=== PATIENT | female | born 2000 | race Two or more races ===

== ENCOUNTER 2018-12-27 19:56 | Observation (INO) | payer MEDICAID | END 2018-12-27 20:45 | disposition home or self-care (01) | DRG 566 | LOC: LDRP 19:56 | PROVIDERS: ADMIT Specialist; ATTEND Specialist | DX: O26.893 Other specified pregnancy related conditions, third trimester (principal); R10.2 Pelvic and perineal pain; Z3A.28 28 weeks gestation of pregnancy | CPT/HCPCS: 59025; 81002; G0378 ==

== ENCOUNTER 2019-01-08 08:20 | Observation (INO) | payer MEDICAID | END 2019-01-08 11:50 | disposition home or self-care (01) | DRG 566 | LOC: LDRP 08:20 | PROVIDERS: ADMIT Specialist; ATTEND Specialist | DX: O36.8130 Decreased fetal movements, third trimester, not applicable or unspecified (principal); O26.893 Other specified pregnancy related conditions, third trimester; R10.9 Unspecified abdominal pain; R50.9 Fever, unspecified; Z3A.30 30 weeks gestation of pregnancy | CPT/HCPCS: 59025; 76818; 81002; G0378 ==

== ENCOUNTER 2019-02-03 16:08 | Observation (INO) | payer MEDICAID ==
[2019-02-03] MEDS ORDERED: PREN-96 PO (16:19)
== END 2019-02-03 16:50 | disposition home or self-care (01) | DRG 566 ==
LOC: LDRP 16:08
PROVIDERS: ADMIT Obstetrics & Gynecology; ATTEND Obstetrics & Gynecology
DX: O00.01 Abdominal pregnancy with intrauterine pregnancy (principal); O42.913 Preterm premature rupture of membranes, unspecified as to length of time between rupture and onset of labor, third trimester; Z3A.33 33 weeks gestation of pregnancy
CPT/HCPCS: 59025; 81002; G0378

== ENCOUNTER 2019-03-12 05:40 | Observation (INO) | payer MEDICAID ==
[~2019-03-12] VITALS: Ht 154.9 cm; Wt 84.8 kg
[~2019-03-12 05:40] MED LIST: PREN-96 PO
[2019-03-12] MEDS ORDERED: LACTATED RINGER'S 1,000 ML IV ONE (06:15)
== END 2019-03-12 08:05 | disposition home or self-care (01) | DRG 566 ==
LOC: LDRP 05:40
PROVIDERS: ADMIT Specialist; ATTEND Specialist
DX: O62.9 Abnormality of forces of labor, unspecified (principal); Z3A.39 39 weeks gestation of pregnancy
CPT/HCPCS: 59025; 81002; G0378; 96361; 96374

== ENCOUNTER 2019-03-19 08:06 | Inpatient (IN) | payer MEDICAID ==
[~2019-03-19] VITALS: Ht 154.9 cm; Wt 86.2 kg
[2019-03-19] MEDS: LACTATED RINGER'S 1,000 ML IV SCH ×2 (08:40→20:10)
[2019-03-19] MEDS ORDERED: PHISODERM TOP SOLN 240ML BTL TOP PRN (09:00)
[2019-03-19] MEDS ORDERED: NALBUPHINE HCL 10 MG/1ml INJECTION IV PRN (09:00)
[2019-03-19] MEDS ORDERED: LIDOCAINE 2%HCL (LOCAL ANESTH.) INJ 20ML MDV ID ONE (09:00)
[2019-03-19] MEDS ORDERED: PENICILLIN G POT 5MIL/D5 50ML 50 ML IV ONE (09:00)
[2019-03-19] MEDS ORDERED: WITCH HAZEL-GLYCERIN PAD TOP PRN (09:00)
[2019-03-19] MEDS ORDERED: DERMOPLAST 60ML BOTTLE TOP PRN (09:00)
[2019-03-19 09:30] LABS: Basophils # (auto) 0 uL; Basophils % (auto) 0.4 % (0.0-2.0); Eosinophils # (auto) 0.1 uL; Eosinophils % (auto) 0.4 % (0.0-7.0); Hematocrit 39.6 % (36.0-46.0); Hemoglobin 13.1 g/dL (12.2-16.2); Lymphocytes # (auto) 1.2 uL; Lymphocytes % (auto) 9.9 % (10.0-50.0); Mean Corpuscular Hgb Conc. 33.2 g/dL (32.0-36.0); Mean Corpuscular Volume 93.4 fL (80.0-100.0); Monocytes # (auto) 0.6 uL; Neutrophils # (auto) 10.3 uL; Neutrophils % (auto) 84.3 % (37.0-80.0); Platelet Count (auto) 273 10^3/uL (140-450); Red Blood Cells 4.24 10^6/uL (4.0-5.20); Red Cell Distribution Width 14.1 % (11.8-14.3); White Blood Cell 12.3 10^3/uL (4.4-10.8)
[2019-03-19] MEDS: PENICILLIN G POTASSIUM 2,500,000 UNITS in D5W 5% 50 ML IV SCH ×4 (09:30→21:21)
[2019-03-19 09:38] LABS: Urine Amorphous Crystal FEW /hpf (None Seen); Urine Bacteria FEW /hpf (None Seen); Urine Blood Negative /uL (Negative); Urine Specific Gravity 1.011 (1.001-1.035); Urine WBC 2 /hpf (0 - 5)
[2019-03-19 09:40] LABS: Albumin 2.8 g/dL (3.4-5.0); BUN/Creatinine Ratio 19.3; Potassium 3.9 mmol/L (3.5-5.1)
[2019-03-19 09:42] LABS: INR 0.85 (0.9-1.15); Partial Thromboplastin Time 26.3 sec (23.64-32.05); Prothrombin Time 9.2 sec (9.06-12.60)
[2019-03-19 09:43] LABS: Bilirubin, Total 0.2 mg/dL (0.2-1.0); Total Protein 7.5 g/dL (6.4-8.2)
[2019-03-19] MEDS ORDERED: BUTORPHANOL TARTRATE 2 MG/1 ML VIAL ONE (21:31)
[2019-03-19] MEDS ORDERED: LACT. RINGERS/OXYTOCIN 20UNITS 1,000 ML IV SCH (21:42)
[2019-03-19] MEDS ORDERED: BUTORPHANOL TARTRATE 2 MG/1 ML VIAL IV ONE (21:45)
[2019-03-19] MEDS ORDERED: LACTATED RINGER'S 1,000 ML IV ONE (22:14)
[2019-03-19] MEDS ORDERED: fentaNYL CITRATE 100 MCG/2 ML VL IV ONE ×2 (22:15→23:30)
[2019-03-19] MEDS ORDERED: fentaNYL W ROPIVACAINE 150 ML EPI SCH ×2 (22:15→23:30)
[2019-03-19] MEDS ORDERED: ePHEDrine SULFATE 50 MG/ML AMP IV ONE ×2 (22:15→23:30)
[2019-03-19] MEDS ORDERED: NALOXONE HCL 0.4 MG/ML VIAL IV ONE ×2 (22:15→23:30)
[2019-03-19] MEDS ORDERED: LIDOCAINE HCL 2 %PF INJ 10ML AMP IJ ONE (22:15)
[2019-03-19] MEDS ORDERED: SODIUM CHLORIDE 0.9% 500 ML IV PRN (23:17)
[2019-03-19] MEDS ORDERED: LACTATED RINGER'S 500 ML IV ONE (23:17)
[2019-03-20] MEDS: PENICILLIN G POTASSIUM 2,500,000 UNITS in D5W 5% 50 ML IV SCH ×2 (00:59→05:00)
[2019-03-20] MEDS ORDERED: LACTATED RINGER'S 1,000 ML IV SCH (03:45)
[2019-03-20] MEDS ORDERED: LACT. RINGERS/OXYTOCIN 20UNITS 1,000 ML IV SCH (04:39)
--- NOTE | 2019-03-20 05:50 | NUR ---
Ambulation: Patient OOB with standby assistance by RN. Patient ambulated to bathroom with steady gait. Patient able to void without difficulty. [facility]icare teaching provided with returned demonstration by patient. Clean gown provided and bed linen changed. Patient ambulated back to bed with steady gait and no distress noted.
[2019-03-20 07:00] VITALS: BP 103/59
[2019-03-20 10:30] VITALS: BP 111/64
[2019-03-20 12:42] LABS: RPR Non Reactive (Non Reactive)
[2019-03-20 15:00] VITALS: BP 108/59
--- NOTE | 2019-03-20 15:30 | NUR ---
iv line removed and discontinued.2x2 pressure dressing applied.no bleeding noted.
[2019-03-20 19:00] VITALS: BP 118/71
[2019-03-20] MEDS: IBUPROFEN 600 MG TAB PO PRN (19:27)
[2019-03-20 23:15] VITALS: BP 100/56
[2019-03-21] MEDS ORDERED: TETANUS-DIPTH-ACEL PERTUSSIS 0.5ML SYRG IM ONE (01:30)
[2019-03-21] MEDS: IBUPROFEN 600 MG TAB PO PRN (01:45)
[2019-03-21 03:00] VITALS: BP 111/65
[2019-03-21 06:42] VITALS: BP 114/71
--- NOTE | 2019-03-21 10:33 | NUR ---
Discharge: Patient taken to vehicle via steady ambulation with all personal belongings, accompanied by FOB and WORK COUNSELORSHIVANI MCCLENDON. No distress noted at time of departure, no adverse changes in status since initial assessment.
--- NOTE | 2019-03-21 10:38 | NUR ---
Discharge: Discharge instructions given as ordered. Pt encouraged to follow up with [facility] on April 05 at 0900 am. All questions and concerns addressed. Patient verbalized understanding. Medication reconciliation completed and copy given to patient. All copies of vaccinations given to patient. Patient encouraged to prepare to depart unit. Addendum: 03/21/19 at 1039 by CHRISTIAN MARTINEZ RN RN DISCHARGE INSTRUCTIONS GIVEN AT 0915AM.
== END 2019-03-21 10:33 | disposition home or self-care (01) | DRG 560 ==
LOC: LDRP 08:06
PROVIDERS: ADMIT Specialist; ATTEND Specialist
PROC: 10E0XZZ Delivery of Products of Conception, External Approach (ICD-10-PCS; principal; 2019-03-20)
PROC: 3E0R3BZ Introduction of Anesthetic Agent into Spinal Canal, Percutaneous Approach (ICD-10-PCS; 2019-03-20)
PROC: 00HU33Z Insertion of Infusion Device into Spinal Canal, Percutaneous Approach (ICD-10-PCS; 2019-03-20)
DX: O48.0 Post-term pregnancy (principal); Z37.0 Single live birth; Z3A.40 40 weeks gestation of pregnancy; Z82.49 Family history of ischemic heart disease and other diseases of the circulatory system; Z80.3 Family history of malignant neoplasm of breast; Z83.3 Family history of diabetes mellitus
CPT/HCPCS: 36415; 51702; 59025; 59409; 62282; 80053; 81001; 85025; 85610; 85730; 86592; 86850; 86900; 86901; 90715; 94762; 96361; 96366; 96372; G0378; J2540; J2590; J3010; J7060

== ENCOUNTER 2019-07-29 00:22 | Emergency (ER) | payer MEDICAID ==
[~2019-07-29] VITALS: Ht 154.9 cm; Wt 78.0 kg
[2019-07-29 01:48] VITALS: BP 113/77
[2019-07-29 01:59] LABS: Urine Amorphous Crystal FEW /hpf (None Seen); Urine Bacteria MOD /hpf (None Seen); Urine Blood 3+ /uL (Negative); Urine Mucus FEW (None Seen); Urine WBC 245 /hpf (0 - 5); Urine WBC Clumps PRESENT /hpf (None Seen)
== END 2019-07-29 02:11 | disposition home or self-care (01) ==
LOC: ER 00:24
DX: N39.0 Urinary tract infection, site not specified (principal)
CPT/HCPCS: 81001; 81025

== ENCOUNTER 2024-06-26 16:06 | Inpatient (IN) | payer MEDICAID ==
[~2024-06-26] VITALS: Ht 154.9 cm; Wt 91.6 kg
[2024-06-26 17:15] LABS: Fern Testing Positive
[2024-06-26] MEDS ORDERED: miSOPROStol 100 mcg TAB SL PRN (17:30)
[2024-06-26] MEDS ORDERED: METHYLERGONOVINE MALEATE 0.2 MG/ML AMP IM PRN (17:30)
[2024-06-26] MEDS ORDERED: BUTORPHANOL TARTRATE 2 MG/1 ML VIAL IV PRN ×2 (17:30)
[2024-06-26] MEDS ORDERED: LIDOCAINE 2%HCL (LOCAL ANESTH.) INJ 20ML MDV IJ PRN (17:30)
[2024-06-26] MEDS ORDERED: miSOPROStol 100 mcg TAB PR PRN (17:30)
[2024-06-26] MEDS ORDERED: NALBUPHINE HCL 10 MG/1ml INJECTION IV PRN (17:30)
[2024-06-26] MEDS ORDERED: ONDANSETRON HCL 4 MG/2 ML VIAL IV PRN (17:30)
[2024-06-26] MEDS ORDERED: CARBOPROST TROMETHAMINE 250 MCG/1ML VIAL IM PRN (17:30)
[2024-06-26 18:00] LABS: Amphetamine Screen, Urine Neg (NEGATIVE); Barbiturate Scree,Urine Neg (NEGATIVE); Benzodiazephine Screen, Urine Neg (NEGATIVE); Cannabinoid Screen, Urine Neg (NEGATIVE); Cocaine Screen, Urine Neg (NEGATIVE); Opiate Scree,Urine Neg (NEGATIVE); Phencyclidine Screen, Urine Neg (NEGATIVE)
[2024-06-26] MEDS: DERMOPLAST 60ML BOTTLE TOP PRN (18:08)
[2024-06-26] MEDS: WITCH HAZEL-GLYCERIN PAD TOP PRN (18:08)
[2024-06-26] MEDS: PENICILLIN G POT 5MIL/D5 50ML 50 ML IV ONE (18:09)
[2024-06-26] MEDS: PHISODERM TOP SOLN 240ML BTL TOP PRN (18:09)
[2024-06-26] MEDS: LACTATED RINGER'S 1,000 ML IV SCH (18:10)
[2024-06-26 18:13] LABS: Urine Bacteria FEW /hpf (None Seen); Urine Blood TRACE /uL (Negative); Urine Clarity Ex.Turbid (Clear); Urine Color Colorless (Yellow); Urine Mucus FEW (None Seen); Urine Protein, UAD 1+ (Negative); Urine Specific Gravity 1.005 (1.001-1.035); Urine Urobilinogen Normal (Negative); Urine WBC 9 /hpf (0 - 5); Urine pH 7.5 (5.0-9.0)
[2024-06-26 18:14] LABS: Basophils # (auto) 0 10 ^3/uL (0-0.2); Basophils % (auto) 0.2 % (0.0-2.0); Eosinophils # (auto) 0.1 10 ^3/uL (0-0.8); Eosinophils % (auto) 0.7 % (0.0-7.0); Hematocrit 34.9 % (36.0-46.0); Hemoglobin 11.8 g/dL (12.2-16.2); Lymphocytes % (auto) 9.8 % (10.0-50.0); Mean Corpuscular Hemoglobin 30.5 pg (28.0-32.0); Mean Corpuscular Hgb Conc. 33.8 g/dL (32.0-36.0); Mean Corpuscular Volume 90.3 fL (80.0-100.0); Monocytes # (auto) 0.5 10 ^3/uL (0-1.3); Monocytes % (auto) 4.7 % (0.0-12.0); Neutrophils # (auto) 8.5 10 ^3/uL (1.6-8.6); Neutrophils % (auto) 84.6 % (37.0-80.0); Platelet Count (auto) 251 10^3/uL (140-450); Red Blood Cells 3.86 10^6/uL (4.0-5.20); Red Cell Distribution Width 15.5 % (11.8-14.3)
[2024-06-26 18:17] LABS: Alanine Aminotransferase 11 U/L (7-40); Albumin 3.8 g/dL (3.2-4.8); Alkaline Phosphatase 121 U/L (46-116); Anion Gap 6 (5-15); Aspartate Aminotransferase 18 U/L (13-40); Carbon Dioxide 24 mmol/L (20-30); Chloride 108 mmol/L (98-107); Glucose 79 mg/dL (74-106); Potassium 3.2 mmol/L (3.5-5.1); Sodium 138 mmol/L (136-145); Uric Acid 3.6 mg/dL (3.1-7.8)
[2024-06-26 18:18] LABS: Bilirubin, Total 0.4 mg/dL (0.2-1.0); Total Protein 6.7 g/dL (5.7-8.2)
[2024-06-26 18:36] LABS: INR 0.96 (0.9-1.15); Prothrombin Time 10.2 sec (9.3-11.8)
[2024-06-26 18:40] LABS: BUN/Creatinine Ratio 10.4 (10.0-20.0); Blood Urea Nitrogen < 5 mg/dL (9-23)
[2024-06-26] MEDS: NALOXONE HCL 0.4 MG/ML VIAL IV ONE (19:15)
[2024-06-26] MEDS: LIDOCAINE HCL 2 %PF INJ 10ML AMP IJ ONE (19:15)
[2024-06-26] MEDS: ePHEDrine SULFATE 50 MG/ML AMP IV ONE (19:15)
[2024-06-26 20:37] LABS: COVID19 ANTIGEN SOFIA FIA NEGATIVE (NEGATIVE)
[2024-06-26] MEDS: POTASSIUM CHL 20 Meq TABLET PO STA (20:59)
[2024-06-26] MEDS: fentaNYL CITRATE 100 MCG/2 ML VL IV ONE (21:01)
[2024-06-26] MEDS: ROPIVACAINE HCL 200 ML ONE (21:02)
[2024-06-26] MEDS: CALCIUM CARB 500 MG CHEW TAB PO ONE (21:09)
[2024-06-26] MEDS: DIPHENOXYLATE W/ATROPINE 2.5 MG TAB PO SCH (22:00)
[2024-06-26] MEDS: LACTATED RINGER'S 1,000 ML IV ONE (22:19)
[2024-06-26] MEDS: PENICILLIN G POTASSIUM 2,500,000 UNITS in D5W 5% 50 ML IV SCH (22:38)
[2024-06-27] MEDS ORDERED: TERBUTALINE SULFATE 1 MG/ML 1ML VIAL SC PRN
[2024-06-27] MEDS: LACT. RINGERS/OXYTOCIN 20UNITS 500 ML IV ONE ×2 (00:21→05:33)
[2024-06-27] MEDS: LACT. RINGERS/OXYTOCIN 20UNITS 1,000 ML IV SCH (00:23)
[2024-06-27] MEDS ORDERED: IBUPROFEN 600 MG TAB PO PRN (00:45)
[2024-06-27 07:00] VITALS: BP 118/67; PULSE 98; RESP 16; TEMP 98.7; O2SAT 97
[2024-06-27 07:51] LABS: Basophils # (auto) 0 10 ^3/uL (0-0.2); Basophils % (auto) 0.3 % (0.0-2.0); Eosinophils # (auto) 0 10 ^3/uL (0-0.8); Eosinophils % (auto) 0.1 % (0.0-7.0); Hematocrit 34.2 % (36.0-46.0); Hemoglobin 11.6 g/dL (12.2-16.2); Lymphocytes # (auto) 1.2 10 ^3/uL (0.4-5.4); Lymphocytes % (auto) 9.7 % (10.0-50.0); Mean Corpuscular Hemoglobin 30.8 pg (28.0-32.0); Mean Corpuscular Hgb Conc. 33.8 g/dL (32.0-36.0); Mean Corpuscular Volume 91.2 fL (80.0-100.0); Monocytes # (auto) 0.6 10 ^3/uL (0-1.3); Monocytes % (auto) 5.1 % (0.0-12.0); Neutrophils # (auto) 10.4 10 ^3/uL (1.6-8.6); Neutrophils % (auto) 84.8 % (37.0-80.0); Platelet Count (auto) 242 10^3/uL (140-450); Red Blood Cells 3.75 10^6/uL (4.0-5.20); Red Cell Distribution Width 15.5 % (11.8-14.3); White Blood Cell 12.2 10^3/uL (4.4-10.8)
[2024-06-27 11:00] VITALS: BP 138/86; PULSE 95; RESP 16; TEMP 98.5; O2SAT 96
[2024-06-27] MEDS: ACETAMINOPHEN 325 MG TAB PO PRN (13:08)
[2024-06-27] MEDS: PRENATAL VITAMIN TAB PO SCH (13:10)
[2024-06-27 15:00] VITALS: BP 133/82; PULSE 94; RESP 16; TEMP 98.4; O2SAT 94
[2024-06-27] MEDS ORDERED: DOCU-265 PO (18:44)
[2024-06-27] MEDS ORDERED: IBU600T PO (18:44)
[2024-06-27 19:15] VITALS: BP 131/81; PULSE 95; RESP 16; TEMP 98.4; O2SAT 97
[2024-06-27] MEDS: DOCUSATE SOD 100 MG CAP PO SCH (22:11)
[2024-06-27 23:00] VITALS: BP 135/84; PULSE 81; RESP 16; TEMP 98.1; O2SAT 97
[2024-06-27] MEDS ORDERED: PREN-96 PO (23:49)
[2024-06-28 03:00] VITALS: BP 111/64; PULSE 65; RESP 16; TEMP 98; O2SAT 97
[2024-06-28 07:30] VITALS: BP 104/66; PULSE 97; RESP 16; TEMP 98.5; O2SAT 97
[2024-06-28 08:07] LABS: RPR Non Reactive (Non Reactive)
[2024-06-28 11:07] LABS: Rubella Antibodies, IgG <0.90 index (Immune >0.99)
[2024-06-28 11:13] VITALS: BP 102/68; PULSE 74; RESP 16; TEMP 98.2; O2SAT 97
[2024-06-28 12:12] VITALS: BP 102/68; PULSE 78; RESP 16; TEMP 98.4; O2SAT 98
[2024-06-28 16:06] LABS: QuantiFERON-TB Gold Plus Negative (Negative)
== END 2024-06-28 12:12 | disposition home or self-care (01) | DRG 560 ==
LOC: LDRP 16:06 → INTOOBSV 16:06 → UNDOADMOB 16:06 → LDRP 17:27 → OBSVTOIN 17:27 → INTOOBSV 17:27
PROVIDERS: ADMIT Nurse Practitioner Women's Health; ATTEND Nurse Practitioner Women's Health
PROC: 10E0XZZ Delivery of Products of Conception, External Approach (ICD-10-PCS; principal; 2024-06-26)
PROC: 3E0R3BZ Introduction of Anesthetic Agent into Spinal Canal, Percutaneous Approach (ICD-10-PCS; 2024-06-26)
PROC: 00HU33Z Insertion of Infusion Device into Spinal Canal, Percutaneous Approach (ICD-10-PCS; 2024-06-26)
DX: O69.81X0 Labor and delivery complicated by cord around neck, without compression, not applicable or unspecified (principal); Z37.0 Single live birth; O42.02 Full-term premature rupture of membranes, onset of labor within 24 hours of rupture; Z20.822 Contact with and (suspected) exposure to COVID-19; Z3A.38 38 weeks gestation of pregnancy
CPT/HCPCS: 36415; 59025; 59409; 62282; 76805; 80053; 80307; 81001; 83036; 84550; 85025; 85610; 85730; 86592; 86703; 86762; 86803; 86850; 86900; 86901; 87340; 87426; 94760; 94762; 96360; 96361; 96365; 96366; G0378; J2540; J2590; J7060